=== PATIENT | female | born 1990 | race Asian ===

== ENCOUNTER 2019-12-02 17:00 | Emergency (ER) | payer OTHER ==
[2019-12-02] MEDS ORDERED: Tetan/Diph/Pertus SYR(Tdap)* 0.5 ML SYR(BOOSTRIX) use SYR contains LATEX IM ONE (18:46)
--- NOTE | 2019-12-02 18:47 | ED ---
Laceration/Wound HPI - HPI Summary HPI Summary: Patient complains of laceration to third and fifth digit of the hand from broken glass when she dropped jar. Tetanus status unknown. Denies any pain, injury or symptoms. Medical history is none. - History of Current Complaint Stated Complaint: LACERATION LFT HAND Time Seen by Provider: 12/02/19 17:27 Hx Obtained From: Patient Mechanism of Injury: Sharp/Blunt Trauma Aggravating: Movement Onset Severity: Moderate Current Severity: Moderate Pain Intensity: 4 Pain Scale Used: 0-10 Numeric Associated Signs & Symptoms: Pain - Allergy/Home Medications Allergies/Adverse Reactions: Allergies Allergy/AdvReac Type Severity Reaction Status Date / Time No Known Allergies Allergy Verified 12/02/19 17:06 PMH/Surg Hx/FS Hx/Imm Hx Endocrine/Hematology History: Denies: Hx Anticoagulant Therapy Cardiovascular History: Denies: Hx Pacemaker/ICD History: Denies: Hx Dialysis Sensory History: Denies: Hx Eye Prosthesis Opthamlomology History: Denies: Hx Legally Blind EENT History: Denies: Hx Deafness Neurological History: Denies: Hx Dementia Infectious Disease History: No Infectious Disease History: Denies: Traveled Outside the [place] in Last 30 Days - Family History Known Family History: Positive: Non-Contributory - Social History Alcohol Use: Occasionally Hx Substance Use: No Hx Tobacco Use: No Review of Systems Constitutional: Negative Eyes: Negative ENT: Negative Cardiovascular: Negative Respiratory: Negative Gastrointestinal: Negative Genitourinary: Negative Musculoskeletal: Negative Skin: Other Neurological/Mental Status: Negative Psychological: Normal All Other Systems Reviewed And Are Negative: Yes Physical Exam - Summary Physical Exam Summary: Lacerations to distal third and fifth digit. No nailbed involvement. PMS intact distally on both fingers. Normal flexion and extension of all joints on both fingers. Triage Information Reviewed: Yes Vital Signs On Initial Exam: Initial Vitals Temp Pulse Resp BP Pulse Ox 96.0 F 79 18 114/84 100 12/02/19 17:01 12/02/19 17:01 12/02/19 17:01 12/02/19 17:01 12/02/19 17:01 Vital Signs Reviewed: Yes Appearance: Positive: Well-Appearing Skin: Positive: Warm Head/Face: Positive: Normal Head/Face Inspection Eyes: Positive: Normal Neck: Positive: Supple Respiratory/Lung Sounds: Positive: Clear to Auscultation Cardiovascular: Positive: Normal Abdomen Description: Positive: Nontender Musculoskeletal: Positive: Normal Neurological: Positive: Normal Psychiatric: Positive: Normal AVPU Assessment: Alert - [place] Coma Scale Best Eye Response: 4 - Spontaneous Best Motor Response: 6 - Obeys Commands Best Verbal Response: 5 - Oriented Coma Scale Total: 15 Procedures - Sedation Patient Received Moderate/Deep Sedation with Procedure: No - Laceration/Wound Repair 1 Location: upper extremity - distal fifth digit left hand Description: Irregular Anesthesia: Digital, 1.0% Length, Depth and Shape: 3cm x .5cm Irrigated w/ Saline (ccs): 200 Laceration/Wound Explored: clean Number of Sutures: 11 - 4.0 ethilon Layer Closure?: No Sterile Dressing Applied?: No 2 Location: upper extremity - third digit left hand Description: Linear Length, Depth and Shape: 1cm x .25cm Irrigated w/ Saline (ccs): 100 Laceration/Wound Explored: clean Closure: Skin Adhesive Number of Sutures: 0 Layer Closure?: No Sterile Dressing Applied?: No Diagnostics - Vital Signs Vital Signs Temp Pulse Resp BP Pulse Ox 12/02/19 17:01 96.0 F 79 18 114/84 100 - Laboratory Lab Statement: Any lab studies that have been ordered have been reviewed, and results considered in the medical decision making process. Laceration Repair Course/Dx - Course Course Of Treatment: Patient complains of laceration to third and fifth digit of the hand from broken glass when she dropped jar. Tetanus status unknown. Denies any pain, injury or symptoms. Medical history is none. Vital signs within normal limits. Tetanus status updated. Wound cleaned and sutured. - Clinical Impression Provider Diagnoses: Laceration - Critical Care Time Critical Care Statement: Critical care time is provided exclusive of any time spent performing procedures. Discharge ED - Sign-Out/Discharge Documenting (check all that apply): Patient Departure - Discharge Plan Condition: Stable Disposition: HOME Patient Education Materials: Care For Your Stitches (ED), Finger Laceration (ED ) Referrals: No Primary Care Phys,NOPCP [Primary Care Provider] - Additional Instructions: Sutures should be removed in 10 days. Starting tomorrow evening wash hand with warm running water and soap. Do not submerge hand underwater for 5 days. Keep wounds clean and dry and cover with Band-Aid. Follow up with primary care. Return to the ED for any new or worsening symptoms.. - Billing Disposition and Condition Condition: STABLE Disposition: Home
[2019-12-02] MEDS ORDERED: Ibuprofen TAB* 600 MG PO ONE (19:57)
[2019-12-02 20:03] VITALS: BP 119/81
== END 2019-12-02 20:02 | disposition home or self-care (01) ==
LOC: ED 17:00
DX: S61.217A Laceration without foreign body of left little finger without damage to nail, initial encounter (principal); S61.213A Laceration without foreign body of left middle finger without damage to nail, initial encounter; W25.XXXA Contact with sharp glass, initial encounter; Y92.9 Unspecified place or not applicable
CPT/HCPCS: 12002; 90471; 90715; 99282; A9270-GY